=== PATIENT | female | born 1940 | race Caucasian/White ===

== ENCOUNTER → 2018-10-24 15:25 | Outpatient (CLI) | payer MEDICARE, SELFPAY ==
--- NOTE | 2018-10-24 15:43 | XR_ITS ---
EXAM: XR thoracic spine 3V HISTORY: ITS.REASON: DORSALGIA Comparison: None FINDINGS: There is thoracolumbar scoliosis with mild mid thoracic scoliosis convex right and thoracic lumbar scoliosis convex left. There is kyphosis of the thoracic spine with multilevel degenerative disc disease. There is mild wedging involving T6, T7, T8, and T9 may be old. No lytic or blastic change. Mild atelectasis/infiltrate or fibrosis is present in the left lung base IMPRESSION: Kyphoscoliosis with degenerative changes
--- NOTE | 2018-10-24 15:43 | XR_ITS ---
EXAM: XR lumbar spine min 4V HISTORY: ITS.REASON: DORSALGIA ORDERING PHYSICIAN: Shan Saul MD PATIENT AGE: 78 years COMPARISON: None FINDINGS: Mild lumbar scoliosis convex left with rotary component. There is mild wedging of L1 with loss of height anteriorly of 30% with degenerative disc disease at L1-L2 and L2-L3 as well as L4-L5 and L5-S1. Mild facet hypertrophic/arthritic changes are present from L3 to S1 with mild degenerative changes of the SI joints. There is atherosclerotic vascular calcification. IMPRESSION: 1. Lobar spondylosis with scoliosis with multilevel degenerative changes as described above. 2. Wedging of L1 which is age indeterminate.
[2018-10-24 16:13] LABS: Microscopic, Urine URINE MICROSCOPIC (MICROSCOPIC)
[2018-10-24 16:37] LABS: Appearance,Urine CLEAR (Clear); Blood, Urine Negative (Negative); Color,Urine YELLOW (Yellow); Glucose,Urine (UA) Negative (Negative); Ketones,Urine TRACE (Negative); Leukocyte Esterase,Urine Negative (Negative); Nitrate,Urine Negative (Negative); PH,Urine 5.5 (5.0-8.5); Protein,Urine Negative (Negative); Specific Gravity, Urine >= 1.030 (1.005-1.030); Urobilinogen,Urine 0.2 EU/dl (0.2)
[2018-10-24 16:42] LABS: Bilirubin,Urine 1+ (Negative)
[2018-10-24 16:51] LABS: Basophils % 0.6 % (0.1-2.0); Eosinophils # 0.1 K/mm3 (0.0-0.4); Eosinophils % 2.4 % (0.1-12.0); Hematocrit 38.5 % (37.0-47.0); Hemoglobin 12.4 g/dL (12.2-16.2); Lymphocytes # 1.5 K/mm3 (0.7-4.5); Lymphocytes % 26.9 % (10-50); Mean Corpuscular HGB Conc 32.2 g/dL (31.8-35.4); Mean Corpuscular Hemoglobin 29.1 pg (27.0-31.2); Mean Corpuscular Volume 90.4 fl (81-99); Mean Platelet Volume 6.8 fl (7.4-10.4); Monocytes # 0.4 K/mm3 (0.1-1.0); Monocytes % 7.1 % (1.7-9.3); Neutrophils # 3.4 K/mm3 (1.8-7.8); Platelet Count 249 K/mm3 (142-424); Red Blood Count 4.26 M/mm3 (4.20-5.40); Red Cell Distribution Width 12.3 % (11.5-17.5); White Blood Count 5.4 K/mm3 (4.8-10.8)
[2018-10-24 17:19] LABS: Mucus,Urine 1+ /lpf; WBC,Urine Occasional #/hpf (0-3)
[2018-10-24 17:33] LABS: Erythrocyte Sedimentation Rate 84 mm/hr (0-30)
[2018-10-24 18:21] LABS: Alanine Aminotransferase 18 U/L (12-78); Albumin Level 3.7 gm/dL (3.4-5.0); Alkaline Phosphatase 61 U/L (46-116); Anion Gap 10.6 mEq/L (5-15); Aspartate Amino Transferase 17 U/L (15-37); Bilirubin,Total 0.3 mg/dL (0.2-1.0); Blood Urea Nitrogen 17 mg/dL (7-18); Calcium 9.2 mg/dL (8.5-10.1); Carbon Dioxide 31 mmol/L (21.0-32.0); Chloride 105 mmol/L (98-107); Creatinine,Serum 0.97 mg/dL (0.55-1.02); Estimated Glomerular Filt Rate 55 ml/min (>60); GFR (African American) 67 ML/MIN (>60); Globulin 3.6 gm/dl (1.3-3.2); Glucose 74 mg/dL (74-106); Potassium 3.6 mmoL/L (3.5-5.1); Sodium 143 mmol/L (136-145); Thyroid Stimulating Hormone 3.01 uIU/ml (0.358-3.740); Total Protein,Serum 7.3 gm/dL (6.4-8.2)
[2018-10-24 18:23] LABS: C-Reactive Protein < 0.2 mg/L (0.0-0.9)
[2018-10-27 22:49] LABS: Folate 12.4 ng/mL (>3.0); Vitamin B12 386 pg/mL (232-1245); Vitamin D 25 Hydroxy 59.6 ng/mL (30.0-100.0)
== END ==
PROVIDERS: PCP Family Medicine; Visit Provider Family Medicine
DX: R41.3 Other amnesia (principal); M54.9 Dorsalgia, unspecified; K59.00 Constipation, unspecified; Z13.220 Encounter for screening for lipoid disorders
CPT/HCPCS: 36415; 72072; 72110; 80053; 81001; 82607; 82652; 82746; 84443; 85025; 85651; 86140

== ENCOUNTER → 2018-11-04 09:34 | Outpatient (CLI) | payer MEDICARE, SELFPAY ==
--- NOTE | 2018-11-04 09:46 | MR_ITS ---
MR head/brain wo/w con HISTORY: ITS.REASON: MEMORY LOSS ORDERING PHYSICIAN: Shan Saul MD PATIENT AGE: 78 years Comparison: None TECHNIQUE: Standard multiplanar multiecho sequences are performed without contrast. FINDINGS: There are no areas of restricted diffusion. There is no mass, acute hemorrhage or extra-axial fluid collection. There is borderline mild prominence of the sulci which is fairly consistent with the patient's age. Cortical areas and ventricles are otherwise normal. There are a few punctate of increased FLAIR signal involving the anterior superior left external capsule and a few small foci in the posterior parietal subcortical white matter. These do not enhance and there is no abnormal enhancement elsewhere. Visualized vessels are patent and area of the foramen magnum is normal. Visualized optic pathway structures are unremarkable. IMPRESSION: Borderline mild cortical atrophy. White matter findings are nonspecific without enhancement and could be sequela of mild chronic microvascular ischemic change or sequela of migraine headaches. No acute process.
== END ==
PROVIDERS: PCP Family Medicine; Referring Provider Family Medicine; Visit Provider Family Medicine
DX: R41.3 Other amnesia (principal)
CPT/HCPCS: 70553; A9576

== ENCOUNTER 2020-07-26 15:11 | Emergency (ER) | payer MEDICARE, SELFPAY ==
[2020-07-26 15:11] VITALS: BMI 23.4
--- NOTE | 2020-07-26 15:33 | HMH.EDGENADL ---
ED Disposition Clinical Impression: Cardiac arrest Disposition: Condition on Discharge: Referrals: Provider,Referral, [Primary Care Provider] - Time of Disposition: 15:10 - Critical Care Critical Care Time: Yes Attestation: On 07/26/20, the high probability of a clinically significant, sudden or life threatening deterioration of the following system(s) required my full and direct attention, intervention and personal management. The time I documented below is in addition to time spent performing reported procedures but includes the following listed in this critical care notation. Total Critical Care Time: 35 Vital system(s) involved:: Circulatory Failure, Respiratory Failure My critical care processes included: Assessment & monitoring of V/S, Initial and Re-exams, Documentation Medical Decision Making - Medical Records Medical records reviewed: Yes: I reviewed the patient's medical records. - Chuck Inquiry Pt receiving controlled substance: No Vital Signs: 07/26/20 16:12 Temperature 0 F L Pulse Rate 0 L Respiratory Rate 0 L Blood Pressure 0/0 L Orders (Tests/Meds): ED MEDICATIONS Generic Name Dose Route Start Last Admin Trade Name Freq PRN Reason Stop Dose Admin Epinephrine HCl 1 mg 07/26/20 16:07 07/26/20 15:13 Epinephrine 0.1 Mg/Ml 10ml Syringe (Crash Cart) IV 08/25/20 16:06 1 mg NEEDED PRN Administration Code Blue Med Administration Medical Decision Narrative: 80yo F brought in as a CODE BLUE. Patient was down 39 minutes from the time EMS was called to the time EMS reported to the emergency department with the patient. There is been no organized rhythm in that time. Patient has had multiple rounds of epinephrine, continuous CPR. Intubated with ease in the field. Patient's glucose is 116. She has no neuro activity at this time. H's and T's were considered. Efforts were discontinued at 1510. General Adult HPI - General Stated complaint: CODE BLUE Time Seen by Provider: 07/26/20 15:33 Mode of Arrival: EMS Source of Information: EMS - History of Present Illness HPI narrative: 80yo F brought in by EMS as a CODE BLUE. EMS reports patient lives with family. Family went to lie down and take a nap. When the family woke up they found the patient agonal he breathing. No idea what time the patient began agonal he breathing. Per the family on site the patient is a DNR but they have no paperwork to support this. The patient's power of [place] attorney lives in [facility]. Therefore all measures were taken in route to the hospital. Patient arrived with CPR in progress, 6.[address] easy to bag and with good O2 sats. - Related Data Allergies Allergy/AdvReac Type Severity Reaction Status Date / Time No Known Allergies Allergy Verified 07/26/20 16:06 [facility] History - Hepatitis A Screen Drug use history?: No Attestation statement:: This patient has been screened for Hepatitis A risk factors. I have reviewed the patient's past medical history: Yes ROS Obtained: Yes unobtainable due to mental condition, Yes unobtainable due to endotracheal tube Physical Exam - General General appearance: in distress, other (CPR in progress, unresponsive) - Head Head exam: atraumatic, normocephalic - Eye Eye exam: Present: other (Fixed and dilated) - Neck Neck exam: Present: normal inspection - Chest Chest inspection: Present: normal inspection, other (CPR in progress) - Respiratory Respiratory exam: Present: other (No spontaneous respiratory effort, endotracheal tube in place, easy to bag) - Cardiovascular Cardiovascular exam: Present: other (Asystole on the monitor with pulse check) - Abdominal Exam Abdominal exam: Present: soft - Extremities Exam Extremities exam: Present: other (Cool extremities) - Neurological Exam Neurological exam: Present: other (No neuro activity)
--- NOTE | 2020-07-26 15:58 | PC.NURSE ---
1459: PATIENT ARRIVED PER [facility]. INTUBATED EASEMENT MAN WITH 6.5 ETT. #18 LAC. CPR IN PROGRESS. 1502: EPINEPHRINE 1MG IVP X1 1504: RHYTHM CHECK - ASYSTOLE, NO PULSE DETECTED 1505:EPINEPHRINE 1MG IVP X1 1506: RHYTHM CHECK - ASYSTOLE, NO PULSE DETECTED 1508: RHYTHM CHECK - ASYSTOLE, NO PULSE DETECTED 1508: CPR RESUMED - EPINEPHRINE 1MG IVP X1 1509: FSBS:116 1510: RHYTHM CHECK - ASYSTOLE, NO PULSE DETECTED 1510: DR. ARELLANO PRONOUNCE PATIENT, TIME OF . 1530: JOURNEYMAN WIREMAN NOTIFIED OF . 1535: POST MORTEM CARE PROVIDED. 1543: CLAYTON VAZQUEZ STATED PATIENT IS RULED OUT FOR DONATION. 5873: GERHARD NAPIER AND SACHIN NAPIER TAKING PATIENT. HOME IS IN [place]. JOURNEYMAN WIREMAN STATED THEY WOULD MAKE CONTACT WITH HOME AND ARRANGE TRANSFER.
[2020-07-26 16:12] VITALS: BP 0/0; PULSE 0; RESP 0; TEMP -17.7; TEMP 0
== END 2020-07-26 16:13 | disposition expired ==
LOC: ER 15:22
PROVIDERS: Emergency Provider Family Medicine
DX: I46.9 Cardiac arrest, cause unspecified (principal)
CPT/HCPCS: 31500; 96374; 96376; 99283